=== PATIENT | male | born 1965 | race Caucasian/White ===

== ENCOUNTER 2022-04-02 13:15 | Inpatient (IN) | payer BC ==
[2022-04-02 13:44] LABS: #Basophils 0.1 10x3/uL (0.0-0.2); #Eosinphils 0.2 10x3/uL (0.0-0.5); #Monocytes 0.5 10x3/uL (0.0-1.1); #Neutrophils 5.7 10x3/uL (1.5-8.4); %Basophils 0.7 % (0.0-2.0); %Eosinophils 2.3 % (0.0-6.0); %Lymphocytes 25.3 % (18.0-47.0); %Monocytes 5.7 % (0.0-10.0); %Neutrophils 65.4 % (40.0-75.0); Hemoglobin 16.7 g/dL (13.5-17.5); Mean Corpuscular HGB CONC 34.4 g/dL (32.0-36.0); Mean Corpuscular Hemoglobin 32.8 pg (27.0-33.0); Mean Corpuscular Volume 95.5 fl (81.2-95.1); Mean Platelet Volume 10.2 fl (7.4-10.4); Platelet Count 264 10x3/uL (150-450); RBC Distribution Width 12.9 % (11.5-14.5); Red Blood Cell (RBC) Count 5.09 10x6/uL (4.32-5.72); White Blood Cell (WBC) Count 8.7 10x3/uL (3.5-10.5)
[2022-04-02 13:51] LABS: ALT (SGPT) 20 U/L (8-55); AST (SGOT) 25 U/L (5-34); Albumin 4.7 g/dL (3.5-5.0); Alkaline Phosphatase 86 U/L (40-110); Anion Gap 18 mmol/L (10-20); BUN (Urea Nitrogen) 13 mg/dL (8.4-25.7); Bilirubin, Total 0.8 mg/dL (0.2-1.2); Calc. Creatinine Clearance 0 mL/min (70-130); Calcium 8.8 mg/dL (7.8-10.44); Carbon Dioxide 20 mmol/L (22-29); Chloride 105 mmol/L (98-107); Globulin 3.4 g/dL (2.4-3.5); Glucose 138 mg/dL (70-105); Potassium 3.7 mmol/L (3.5-5.1); Protein, Total 8.1 g/dL (6.0-8.3); Sodium 139 mmol/L (136-145)
[2022-04-02] MEDS ORDERED: Aspirin Chewable 81 MG TAB ONE (14:03)
[2022-04-02] MEDS ORDERED: Lorazepam 2 MG/ML VIAL ONE (14:03)
[2022-04-02 17:19] LABS: Troponin I Less than 0.010 ng/mL (< 0.028)
[2022-04-02] MEDS ORDERED: Acetaminophen 650 MG Suppository PR PRN (17:20)
[2022-04-02] MEDS ORDERED: Ondansetron ODT 4 MG TAB PO PRN (17:20)
[2022-04-02] MEDS ORDERED: Nitroglycerin 0.4 MG TAB (25 Tab Bottle) SL PRN (17:20)
[2022-04-02] MEDS ORDERED: Ondansetron PF 4 MG/2 ML Vial IVP PRN (17:20)
[2022-04-02 18:52] VITALS: BMI 29.5
[2022-04-02 19:36] LABS: Troponin I Less than 0.010 ng/mL (< 0.028)
[2022-04-02] MEDS: Acetaminophen 325 MG TAB PO PRN (19:36)
[2022-04-02] MEDS: Famotidine 20 MG TAB PO SCH (21:23)
[2022-04-02] MEDS: Atorvastatin Calcium 40 MG TAB PO SCH (21:23)
[2022-04-02 22:22] LABS: Hemoglobin A1c 5.2 % (4.0-6.0)
[2022-04-02] MEDS ORDERED: Ibuprofen 400 MG TAB PO SCH (23:00)
[2022-04-03 00:09] LABS: SARS-CoV-2 NAA Rapid Test Not Detected (NotDetected)
[2022-04-03 04:17] LABS: #Basophils 0.1 10x3/uL (0.0-0.2); #Eosinphils 0.3 10x3/uL (0.0-0.5); #Monocytes 0.5 10x3/uL (0.0-1.1); #Neutrophils 3.4 10x3/uL (1.5-8.4); %Basophils 0.8 % (0.0-2.0); %Eosinophils 4.7 % (0.0-6.0); %Lymphocytes 33.1 % (18.0-47.0); %Monocytes 7.7 % (0.0-10.0); %Neutrophils 53.1 % (40.0-75.0); Hemoglobin 14.8 g/dL (13.5-17.5); Mean Corpuscular HGB CONC 34.7 g/dL (32.0-36.0); Mean Corpuscular Hemoglobin 32.8 pg (27.0-33.0); Mean Corpuscular Volume 94.7 fl (81.2-95.1); Mean Platelet Volume 10.3 fl (7.4-10.4); Platelet Count 203 10x3/uL (150-450); RBC Distribution Width 12.8 % (11.5-14.5); Red Blood Cell (RBC) Count 4.51 10x6/uL (4.32-5.72); White Blood Cell (WBC) Count 6.4 10x3/uL (3.5-10.5)
[2022-04-03 04:41] LABS: Anion Gap 14 mmol/L (10-20); BUN (Urea Nitrogen) 11 mg/dL (8.4-25.7); Calc. Creatinine Clearance 142 mL/min (70-130); Calcium 8.7 mg/dL (7.8-10.44); Carbon Dioxide 23 mmol/L (22-29); Cardiac Risk 3.8 (Less than 4.5); Chloride 106 mmol/L (98-107); Cholesterol 129 mg/dl (< 200 Desired); Glucose 95 mg/dL (70-105); HDL Cholesterol 34 mg/dL (>60 Neg Risk); LDL Cholesterol, Calculated 54 mg/dL; Potassium 3.7 mmol/L (3.5-5.1); Sodium 139 mmol/L (136-145); Triglycerides 203 mg/dL (Less than 150)
[2022-04-03] MEDS: Famotidine 20 MG TAB PO SCH ×2 (08:34→21:05)
[2022-04-03] MEDS: Aspirin Chewable 81 MG TAB PO SCH (08:34)
[2022-04-03] MEDS ORDERED: Lisinopril 10 MG TAB PO SCH (09:00)
[2022-04-03] MEDS ORDERED: Rosuvastatin 10 MG TAB PO SCH (09:00)
[2022-04-03] MEDS: Acetaminophen 325 MG TAB PO PRN ×2 (09:38→21:06)
[2022-04-03] MEDS ORDERED: Potassium Chloride 20 MEQ TAB PO SCH (10:30)
[2022-04-03] MEDS: Atorvastatin Calcium 40 MG TAB PO SCH (21:05)
[2022-04-04 04:32] LABS: Anion Gap 11 mmol/L (10-20); BUN (Urea Nitrogen) 12 mg/dL (8.4-25.7); Calc. Creatinine Clearance 128 mL/min (70-130); Calcium 8.8 mg/dL (7.8-10.44); Carbon Dioxide 25 mmol/L (22-29); Chloride 106 mmol/L (98-107); Glucose 102 mg/dL (70-105); Potassium 3.7 mmol/L (3.5-5.1); Sodium 138 mmol/L (136-145)
[2022-04-04] MEDS ORDERED: Potassium Chloride 20 MEQ TAB PO SCH (09:00)
[2022-04-04] MEDS: Famotidine 20 MG TAB PO SCH ×2 (09:32→20:11)
[2022-04-04] MEDS: Amlodipine 5 MG TAB PO SCH (09:32)
[2022-04-04] MEDS: Acetaminophen 325 MG TAB PO PRN (09:32)
[2022-04-04] MEDS: Aspirin Chewable 81 MG TAB PO SCH (09:33)
[2022-04-04] MEDS: HYDROcodone/Acetaminophen 5/325 mg Tablet PO PRN ×2 (14:30→20:12)
[2022-04-04] MEDS ORDERED: Meclizine HCl 25 MG TAB PO PRN (16:05)
[2022-04-04] MEDS: Meclizine HCl 25 MG TAB PO PRN (16:16)
[2022-04-04] MEDS: Atorvastatin Calcium 40 MG TAB PO SCH (20:11)
[2022-04-05] MEDS: Meclizine HCl 25 MG TAB PO PRN ×2 (00:08→12:09)
[2022-04-05] MEDS ORDERED: FLUoxetine HCl 10 MG CAP PO SCH (09:00)
[2022-04-05] MEDS: Famotidine 20 MG TAB PO SCH ×2 (10:11→20:00)
[2022-04-05] MEDS: Aspirin Chewable 81 MG TAB PO SCH (10:11)
[2022-04-05] MEDS: Amlodipine 5 MG TAB PO SCH (10:11)
[2022-04-05] MEDS ORDERED: Iopamidol 370 76% 100 ML VIAL ONE (10:18)
[2022-04-05 10:19] LABS: Hemoglobin 16.3 g/dL (13.5-17.5); Mean Corpuscular HGB CONC 34.7 g/dL (32.0-36.0); Mean Corpuscular Hemoglobin 32.3 pg (27.0-33.0); Mean Corpuscular Volume 93.3 fl (81.2-95.1); Mean Platelet Volume 10.1 fl (7.4-10.4); Platelet Count 208 10x3/uL (150-450); RBC Distribution Width 13.1 % (11.5-14.5); Red Blood Cell (RBC) Count 5.04 10x6/uL (4.32-5.72); White Blood Cell (WBC) Count 7.1 10x3/uL (3.5-10.5)
[2022-04-05 10:32] LABS: Anion Gap 11 mmol/L (10-20); BUN (Urea Nitrogen) 10 mg/dL (8.4-25.7); Calc. Creatinine Clearance 114 mL/min (70-130); Calcium 9.8 mg/dL (7.8-10.44); Carbon Dioxide 28 mmol/L (22-29); Chloride 102 mmol/L (98-107); Glucose 114 mg/dL (70-105); Potassium 4.3 mmol/L (3.5-5.1); Sodium 137 mmol/L (136-145)
[2022-04-05] MEDS: HYDROcodone/Acetaminophen 5/325 mg Tablet PO PRN ×2 (13:07→20:00)
[2022-04-05] MEDS: Atorvastatin Calcium 40 MG TAB PO SCH (20:00)
[2022-04-06] MEDS: HYDROcodone/Acetaminophen 5/325 mg Tablet PO PRN (05:13)
[2022-04-06 08:09] VITALS: BP 138/85; TEMP 97.2
[2022-04-06] MEDS: Aspirin Chewable 81 MG TAB PO SCH (08:45)
[2022-04-06] MEDS: Famotidine 20 MG TAB PO SCH (08:45)
[2022-04-06] MEDS: Amlodipine 5 MG TAB PO SCH (08:45)
== END 2022-04-06 12:45 | disposition home or self-care (01) | DRG 149 ==
LOC: CSHERS 13:15 → INTOOBSV 18:41 → CSHTELE 18:41 → OBSVTOIN 04-05 22:26
PROVIDERS: ADMIT Hospitalist; ATTEND Hospitalist
DX: R42 Dizziness and giddiness (principal); I65.03 Occlusion and stenosis of bilateral vertebral arteries; I10 Essential (primary) hypertension; I25.10 Atherosclerotic heart disease of native coronary artery without angina pectoris; G43.909 Migraine, unspecified, not intractable, without status migrainosus; F32.A Depression, unspecified; H91.93 Unspecified hearing loss, bilateral; F17.210 Nicotine dependence, cigarettes, uncomplicated; R07.89 Other chest pain; R00.1 Bradycardia, unspecified; E87.6 Hypokalemia; E78.00 Pure hypercholesterolemia, unspecified; E78.2 Mixed hyperlipidemia; F41.9 Anxiety disorder, unspecified; Z95.5 Presence of coronary angioplasty implant and graft; Z88.8 Allergy status to other drugs, medicaments and biological substances; Z88.2 Allergy status to sulfonamides; Z79.82 Long term (current) use of aspirin; Z79.899 Other long term (current) drug therapy; Z88.5 Allergy status to narcotic agent; Z88.6 Allergy status to analgesic agent; Z82.49 Family history of ischemic heart disease and other diseases of the circulatory system
CPT/HCPCS: 36415; 36416; 70450; 70496; 70498; 71045; 80048; 80053; 80061; 83036; 83735; 84484; 85025; 85027; 85379; 93005; 93306; 94760; 96374; G0378; J2060; Q9967; U0002

== ENCOUNTER 2022-10-22 12:30 | Emergency (ER) | payer BC ==
[2022-10-22 12:48] LABS: Bilirubin Neg (Negative); Blood, Urine Negative (Negative); Clarity Clear (Clear); Glucose, Urine (Dipstick) Normal (Negative); Ketone, Urine Negative (Negative); Leukocyte 500 (Negative); Nitrite Negative (Negative); Protein, Urine (Dipstick) 15 mg/dl (Neg-Trace); Urobilinogen Normal mg/dL (Less than 2)
[2022-10-22 13:17] LABS: Bacteria/HPF 1+ HPF (None Seen); RBC/HPF 0-3 HPF (0-3); Squamous Epithelial 0-3 HPF (0-3); WBC/HPF Greater than 50 HPF (0-3)
[2022-10-22] MEDS ORDERED: cefTRIAXone\\ROCEPHIN 500 MG VIAL ONE (14:06)
[2022-10-22] MEDS ORDERED: Sterile Water 10 ML ONE (14:07)
[2022-10-22] MEDS ORDERED: HYDROcodone/Acetaminophen 10/325 mg Tablet ONE (14:07)
== END 2022-10-22 15:17 | disposition home or self-care (01) ==
LOC: CSHERS 12:30
DX: N45.1 Epididymitis (principal); F17.200 Nicotine dependence, unspecified, uncomplicated; E78.00 Pure hypercholesterolemia, unspecified; I10 Essential (primary) hypertension; I25.2 Old myocardial infarction
CPT/HCPCS: 76870; 81003; 81015; 93976; 96372; J0696

== ENCOUNTER 2023-03-07 08:17 | Outpatient (CLI) | payer BC | END 2023-03-07 08:18 | disposition home or self-care (01) | LOC: CSHMRI 08:17 | PROVIDERS: ATTEND Family Medicine | DX: M54.12 Radiculopathy, cervical region (principal); M50.90 Cervical disc disorder, unspecified, unspecified cervical region; M47.812 Spondylosis without myelopathy or radiculopathy, cervical region; M54.16 Radiculopathy, lumbar region; M47.816 Spondylosis without myelopathy or radiculopathy, lumbar region; M25.48 Effusion, other site | CPT/HCPCS: 72040; 72100; 72141; 72148 ==

== ENCOUNTER 2023-05-23 12:56 | Emergency (ER) | payer BC ==
[2023-05-23] MEDS ORDERED: predniSONE 20 MG TAB ONE (14:28)
[2023-05-23] MEDS ORDERED: Cyclobenzaprine 10 MG TAB ONE (14:29)
[2023-05-23] MEDS ORDERED: HYDROcodone/Acetaminophen 5/325 mg Tablet ONE (14:29)
== END 2023-05-23 14:55 | disposition home or self-care (01) ==
LOC: CSHERS 12:56
DX: S33.5XXA Sprain of ligaments of lumbar spine, initial encounter (principal); E78.00 Pure hypercholesterolemia, unspecified; I10 Essential (primary) hypertension; F17.220 Nicotine dependence, chewing tobacco, uncomplicated
CPT/HCPCS: 99283; J7512

== ENCOUNTER 2024-04-26 12:07 | Emergency (ER) | payer SELFPAY ==
[2024-04-26] MEDS ORDERED: Acetaminophen 500 MG TAB ONE (13:58)
[2024-04-26] MEDS ORDERED: Ketorolac Tromethamine 30 MG (1 mL) VIAL ONE (13:58)
== END 2024-04-26 14:50 | disposition home or self-care (01) ==
LOC: CSHERS 12:07
DX: S63.91XA Sprain of unspecified part of right wrist and hand, initial encounter (principal); F17.220 Nicotine dependence, chewing tobacco, uncomplicated; I10 Essential (primary) hypertension; W23.1XXA Caught, crushed, jammed, or pinched between stationary objects, initial encounter
CPT/HCPCS: 96372; J1885

== ENCOUNTER 2024-09-12 04:37 | Emergency (ER) | payer SELFPAY ==
[2024-09-12] MEDS ORDERED: HYDROcodone/Acetaminophen 10/325 mg Tablet ONE (04:47)
[2024-09-12 04:57] LABS: #Basophils 0.04 10x3/uL (0.0-0.2); #Eosinophils 0.24 10x3/uL (0.0-0.5); #Monocytes 0.75 10x3/uL (0.0-1.1); #Neutrophils 5.61 10x3/uL (1.5-8.4); %Basophils 0.4 % (0.0-2.0); %Eosinophils 2.7 % (0.0-6.0); %Lymphocytes 25.3 % (18.0-47.0); %Monocytes 8.4 % (0.0-10.0); %Neutrophils 62.8 % (40.0-75.0); Hematocrit 40.7 % (38.8-50.0); Mean Corpuscular HGB CONC 34.4 g/dL (32.0-36.0); Mean Corpuscular Hemoglobin 33.2 pg (27.0-33.0); Mean Corpuscular Volume 96.4 fL (81.2-95.1); Mean Platelet Volume 9.3 fL (7.4-10.4); Platelet Count 195 10x3/uL (150-450); RBC Distribution Width 13.7 % (11.5-14.5); Red Blood Cell (RBC) Count 4.22 10x6/uL (4.32-5.72); White Blood Cell (WBC) Count 8.9 10x3/uL (3.5-10.5)
[2024-09-12 05:15] LABS: PTT 27.5 sec (22.0-33.0); Prothrombin Time 11.1 sec (9.5-12.1)
[2024-09-12] MEDS ORDERED: HYDROmorphone 0.5 MG/0.5 ML SYRINGE ONE (05:15)
[2024-09-12] MEDS ORDERED: Ondansetron PF 4 MG/2 ML Vial ONE (05:16)
[2024-09-12 05:19] LABS: ALT (SGPT) 21 U/L (8-55); AST (SGOT) 24 U/L (5-34); Albumin 4.5 g/dL (3.5-5.0); Alkaline Phosphatase 107 U/L (40-110); Anion Gap 15 mmol/L (10-20); BUN (Urea Nitrogen) 12 mg/dL (8.4-25.7); Bilirubin, Total 0.8 mg/dL (0.2-1.2); Calc. Creatinine Clearance 0 mL/min (70-130); Calcium 9.6 mg/dL (7.8-10.44); Carbon Dioxide 25 mmol/L (22-29); Chloride 104 mmol/L (98-107); Estimated GFR 68; Globulin 3.1 g/dL (2.4-3.5); Glucose 99 mg/dL (70-105); Lipase 58 U/L (8-78); Magnesium 1.9 mg/dL (1.6-2.6); Potassium 3.6 mmol/L (3.5-5.1); Protein, Total 7.6 g/dL (6.0-8.3); Sodium 140 mmol/L (136-145)
[2024-09-12 05:26] LABS: Troponin I Less than 0.010 ng/mL (< 0.028)
[2024-09-12] MEDS ORDERED: Nitroglycerin 50 MG/250 ML BOT 250 ML ONE (05:33)
[2024-09-12] MEDS ORDERED: Aspirin Chewable 81 MG TAB ONE (06:10)
[2024-09-12] MEDS ORDERED: Lorazepam 2 MG/ML VIAL ONE (07:15)
[2024-09-12] MEDS ORDERED: Iopamidol 370 76% 100 ML VIAL ONE (14:36)
== END 2024-09-12 08:33 | disposition short-term general hospital (02) ==
LOC: CSHERS 04:37
DX: I20.0 Unstable angina (principal); I10 Essential (primary) hypertension; F17.220 Nicotine dependence, chewing tobacco, uncomplicated; Z79.02 Long term (current) use of antithrombotics/antiplatelets; Z79.82 Long term (current) use of aspirin; Z79.899 Other long term (current) drug therapy
CPT/HCPCS: 71275; 74174; 80053; 83690; 83735; 83880; 84484; 85025; 85610; 85730; 93005; 96374; 96375; J2060; J2405; Q9967